=== PATIENT | male | born 1985 | race Caucasian/White ===

== ENCOUNTER → 2018-03-02 | Outpatient (CLI) | payer SELFPAY ==
[2016-02-17 11:15] VITALS: BP 125/77
[~2018-03-02] MED LIST: FURO-69 PO; HYDR15SO6 PO; NAPR500T8 PO; PANT20TA58 PO; TOPI50TA38 PO; ZOLP5TAB PO
[2018-03-02 11:38] LABS: BASO # 0.1 x10^3/uL (0.0-0.2); BASO % 1 % (0-3); EOS # 0.3 x10^3/uL (0.0-0.7); EOS % 3 % (0-3); HEMATOCRIT 44.9 % (39.0-53.0); HEMOGLOBIN 15.4 g/dL (13.0-17.5); LYMPH # 2.4 x10^3/uL (1.0-4.8); LYMPH % 24 % (24-48); MEAN CORPUSCULAR HEMOGLOBIN 32 pg (25-35); MEAN CORPUSCULAR HGB CONC 34 g/dL (31-37); MEAN CORPUSCULAR VOLUME 92 fL (79-100); MONO # 0.7 x10^3/uL (0.0-1.1); MONO % 7 % (0-9); NEUT # 6.6 x10^3uL (1.8-7.7); NEUT % 65 % (31-73); PLATELET COUNT 272 x10^3/uL (140-400); RED BLOOD COUNT 4.89 x10^6/uL (4.30-5.70); RED CELL DISTRIBUTION WIDTH 12.6 % (11.5-14.5); WHITE BLOOD COUNT 10.1 x10^3/uL (4.0-11.0)
[2018-03-02 11:53] LABS: ALBUMIN 3.8 g/dL (3.4-5.0); GFR 86.1; POTASSIUM 4.3 mmol/L (3.5-5.1); TOTAL BILIRUBIN 0.2 mg/dL (0.2-1.0); TOTAL PROTEIN 7.5 g/dL (6.4-8.2)
== END | disposition home or self-care (01) ==
LOC: LAB 10:17
PROVIDERS: ATTEND Physician Assistant
DX: D72.829 Elevated white blood cell count, unspecified (principal)
CPT/HCPCS: 36415; 80053; 82607; 82746; 85025

== ENCOUNTER 2018-06-22 16:51 | Emergency (ER) | payer OTHER ==
[~2018-06-22] VITALS: Ht 177.8 cm; Wt 113.4 kg
--- NOTE | 2018-06-22 17:38 | PHYS DOC ---
Past History Past Medical History: CHF, GERD, MRSA, Seizure, Other (EDIE MCKNIGHT DO) Past Surgical History: Other Additional Past Surgical Histo: left leg surgery (EDIE MCKNIGHT DO) Smoking: Quit Greater Than 1 Year Alcohol Use: None Drug Use: None (EDIE MCKNIGHT DO) Adult General Chief Complaint Chief Complaint: LOWER EXTREMITY [facility] HPI Patient is a 32-year-old male presents complaining of left leg pain and swelling. This darted over the course of the night. No trauma. He has a history of similar with previous cellulitis. Patient denies any trauma, stasis, or known hypercoagulable state. No fever. No shortness of breath. No redness. Denies any nausea or vomiting. Denies any chest pain or palpitations. Nothing seems to make the symptoms better or worse. Symptoms are moderate in intensity.[ ] (EDIE MCKNIGHT DO) Review of Systems Review of Systems Constitutional: Denies fever or chills [] Eyes: Denies change in visual acuity, redness, or eye pain [] HENT: Denies nasal congestion or sore throat [] Respiratory: Denies cough or shortness of breath [] Cardiovascular: No additional information not addressed in HPI [] GI: Denies abdominal pain, nausea, vomiting, bloody stools or diarrhea [] : Denies dysuria or hematuria [] Musculoskeletal: Denies back pain, see history of present illness[] Integument: Denies rash or skin lesions [] Neurologic: Denies headache, focal weakness or sensory changes [] Endocrine: Denies polyuria or polydipsia [] All other systems were reviewed and found to be within normal limits, except as documented in this note. (EDIE MCKNIGHT DO) Allergies Allergies Allergies Coded Allergies Type Severity Reaction Last Updated Verified Penicillins Allergy Severe Anaphylaxis 02/17/16 Yes Sulfa (Sulfonamide Antibiotics) Allergy Severe Anaphylaxis 02/17/16 Yes (EDIE MCKNIGHT DO) Physical Exam Physical Exam Constitutional: Well developed, well nourished, no acute distress, non-toxic appearance. [] HENT: Normocephalic, atraumatic, bilateral external ears normal, oropharynx moist, no oral exudates, nose normal. [] Eyes: PERRLA, EOMI, conjunctiva normal, no discharge. [] Neck: Normal range of motion, no tenderness, supple, no stridor. [] Cardiovascular:Heart rate regular rhythm, no murmur [] Lungs & Thorax: Bilateral breath sounds clear to auscultation [] Abdomen: Bowel sounds normal, soft, no tenderness, no masses, no pulsatile masses. [] Skin: Warm, dry, no erythema, no rash. [] Back: No tenderness, no CVA tenderness. [] Extremities: No tenderness, no cyanosis, no clubbing, ROM intact, no edema. [] Neurologic: Alert and oriented X 3, normal motor function, normal sensory function, no focal deficits noted. [] Psychologic: Affect normal, judgement normal, mood normal. [] (EDIE MCKNIGHT DO) EKG EKG [] (EDIE MCKNIGHT DO) Radiology/Procedures Radiology/Procedures [] (EDIE MCKNIGHT DO) Impressions: PROCEDURE: VENOUS LOWER EXTREMITY LEFT Left lower extremity venous Doppler: Reason for examination: Left leg swelling. The left lower extremity venous system was evaluated from the common femoral and greater saphenous veins distally to the calf veins with grayscale imaging, color-flow imaging and spectral analysis. A 1.4 cm lymph node is seen at the left groin. The left lower extremity venous system shows normal blood flow without deep venous thrombosis. There is normal venous response to compression and augmentation. IMPRESSION: No deep venous thrombosis in the left lower extremity. 1.4 cm lymph node in the left groin. Electronically signed by: Natalie Metcalf MD (06/22/2018 6:29 PM) [facility] (JESS SUAREZ Jr., DO) Course & Med Decision Making Course & Med Decision Making Pertinent Labs and Imaging studies reviewed. (See chart for details) [] (EDIE MCKNIGHT DO) Course & Med Decision Making Patient's care was received at 6:00 PM. At the time of prior M.D. departure, blood work and a venous duplex were pending. Patient's blood work is returned fairly unremarkable. Venous duplex ultrasound demonstrates no DVT. Patient does have significant history of cellulitis in the past for which she has had to be admitted numerous times to be placed on vancomycin or Zyvox. Patient is penicillin sulfa allergic. Will prescribe clindamycin and have patient follow up with his primary provider in the next few days. (JESS SUAREZ Jr. DO) Dragon Disclaimer Dragon Disclaimer This electronic medical record was generated, in whole or in part, using a voice recognition dictation system. (EDIE MCKNIGHT DO) Departure Departure: Impression: Primary Impression: Cellulitis of left lower leg Disposition: 01 HOME, SELF-CARE Condition: STABLE Referrals: GERDA WALLACE (PCP) Patient Instructions: Cellulitis Scripts Clindamycin Hcl (CLINDAMYCIN HCL) 300 Mg Capsule 1 CAP PO QID for infection, #40 CAP Prov: JESS SUAREZ Jr., DO 06/22/18 EDIE MCKNIGHT DO Jun 22, 2018 17:38 JESS SUAREZ Jr., DO Jun 22, 2018 19:07
[2018-06-22] MEDS ORDERED: KETOROLAC 30 MG/ML VIAL. IV ONE (17:45)
[2018-06-22 18:25] LABS: BASO # 0.2 x10^3/uL (0.0-0.2); BASO % 1 % (0-3); EOS # 0.4 x10^3/uL (0.0-0.7); EOS % 3 % (0-3); HEMATOCRIT 42.7 % (39.0-53.0); HEMOGLOBIN 14.5 g/dL (13.0-17.5); LYMPH # 2.6 x10^3/uL (1.0-4.8); LYMPH % 23 % (24-48); MEAN CORPUSCULAR HEMOGLOBIN 31 pg (25-35); MEAN CORPUSCULAR HGB CONC 34 g/dL (31-37); MEAN CORPUSCULAR VOLUME 92 fL (79-100); MONO # 0.9 x10^3/uL (0.0-1.1); MONO % 8 % (0-9); NEUT # 7.4 x10^3uL (1.8-7.7); NEUT % 65 % (31-73); PLATELET COUNT 255 x10^3/uL (140-400); RED BLOOD COUNT 4.65 x10^6/uL (4.30-5.70); WHITE BLOOD COUNT 11.4 x10^3/uL (4.0-11.0)
--- NOTE | 2018-06-22 18:32 | RAD ---
Left lower extremity venous Doppler: Reason for examination: Left leg swelling. The left lower extremity venous system was evaluated from the common femoral and greater saphenous veins distally to the calf veins with grayscale imaging, color-flow imaging and spectral analysis. A 1.4 cm lymph node is seen at the left groin. The left lower extremity venous system shows normal blood flow without deep venous thrombosis. There is normal venous response to compression and augmentation. IMPRESSION: No deep venous thrombosis in the left lower extremity. 1.4 cm lymph node in the left groin. Electronically signed by: Natalie Metcalf MD (06/22/2018 6:29 PM) [facility]
[2018-06-22 18:40] LABS: ALBUMIN 3.4 g/dL (3.4-5.0); CALCIUM 8.5 mg/dL (8.5-10.1); CREATININE 1.4 mg/dL (0.7-1.3); GFR 58.4; POTASSIUM 3.9 mmol/L (3.5-5.1); TOTAL BILIRUBIN 0.2 mg/dL (0.2-1.0); TOTAL PROTEIN 6.9 g/dL (6.4-8.2)
[2018-06-22 19:08] VITALS: BP 131/68
[2018-06-22] MEDS ORDERED: CLIN300C8 PO (19:09)
== END 2018-06-22 19:15 | disposition home or self-care (01) ==
LOC: ER 16:51
DX: L03.116 Cellulitis of left lower limb (principal); I50.9 Heart failure, unspecified; K21.9 Gastro-esophageal reflux disease without esophagitis; Z86.14 Personal history of Methicillin resistant Staphylococcus aureus infection; Z87.891 Personal history of nicotine dependence; Z88.0 Allergy status to penicillin; Z88.2 Allergy status to sulfonamides
CPT/HCPCS: 36415; 80053; 85025; 85610; 93971; 96374; 99285; J1885